=== PATIENT | female | born 1965 | race Caucasian/White ===

== ENCOUNTER 2018-06-17 21:46 | Emergency (ER) | payer MEDICARE, MEDICAID ==
[~2018-06-17] VITALS: Ht 165.1 cm; Wt 63.5 kg
[~2018-06-17 21:46] MED LIST: AMIT100T2 PO; ASCO500T11 PO; Acetaminophen PO; BISA-51 PO; GABA-339 PO; IBUP800T24 PO; INSLANTI SC; LEVO500T21 PO; LIS10T PO; LORA-654 PO; LOVA40TA72 PO; SERT-274 PO; TIZA4TAB9 PO
[2018-06-17 23:23] LABS: Basophils # (auto) 0 uL; Basophils % (auto) 0.5 % (0.0-2.0); Eosinophils # (auto) 0.1 uL; Eosinophils % (auto) 1.2 % (0.0-7.0); Hematocrit 34.2 % (36.0-46.0); Hemoglobin 11.5 g/dL (12.2-16.2); Lymphocytes # (auto) 0.5 uL; Lymphocytes % (auto) 7.1 % (10.0-50.0); Mean Corpuscular Hemoglobin 29.8 pg (28.0-32.0); Mean Corpuscular Hgb Conc. 33.5 g/dL (32.0-36.0); Mean Corpuscular Volume 88.9 fL (80.0-100.0); Monocytes # (auto) 0.7 uL; Neutrophils # (auto) 5.9 uL; Neutrophils % (auto) 81.2 % (37.0-80.0); Nucleated Red Blood Cells % 0.1 %; Platelet Count (auto) 122 10^3/uL (140-450); Red Blood Cells 3.85 10^6/uL (4.0-5.20); Red Cell Distribution Width 14.1 % (11.8-14.3); White Blood Cell 7.3 10^3/uL (4.4-10.8)
[2018-06-17 23:35] LABS: Urine Bacteria MANY /hpf (None Seen); Urine Blood 2+ /uL (Negative); Urine Mucus FEW (None Seen); Urine Specific Gravity 1.008 (1.001-1.035); Urine WBC 283 /hpf (0 - 5); Urine WBC Clumps PRESENT /hpf (None Seen)
[2018-06-17 23:42] LABS: Alcohol, Urine < 3.0 mg/dL (0-5); Amphetamine Screen, Urine NEGATIVE (NEGATIVE); Barbiturate Scree,Urine NEGATIVE (NEGATIVE); Benzodiazephine Screen, Urine NEGATIVE (NEGATIVE); Cannabinoid Screen, Urine POSITIVE (NEGATIVE); Cocaine Screen, Urine NEGATIVE (NEGATIVE); Opiate Scree,Urine NEGATIVE (NEGATIVE); Phencyclidine Screen, Urine NEGATIVE (NEGATIVE)
[2018-06-17 23:42] LABS: Albumin 2.7 g/dL (3.4-5.0); Anion Gap 12 (5-15); BUN/Creatinine Ratio 17.5; Blood Alcohol < 3.0 mg/dL (0-5); Blood Urea Nitrogen 14 mg/dL (7-18); Calcium 8.6 mg/dL (8.5-10.1); Carbon Dioxide 21 mmol/L (21-32); Chloride 101 mmol/L (98-107); GFR African American 97 mL/min; GFR Non-African American 80 mL/min; Glucose 338 mg/dL (74-106); Potassium 3.9 mmol/L (3.5-5.1); Sodium 134 mmol/L (136-145)
[2018-06-17 23:45] LABS: Alanine Aminotransferase 31 U/L (13-56); Alkaline Phosphatase 108 U/L (45-117); Aspartate Aminotransferase 23 U/L (15-37); Bilirubin, Total 0.5 mg/dL (0.2-1.0); Total Protein 6.3 g/dL (6.4-8.2)
[2018-06-18] MEDS ORDERED: SODIUM CHLORIDE 0.9% 1,000 ML IV ONE (01:30)
[2018-06-18 02:49] VITALS: BP 132/84
== END 2018-06-18 02:50 | disposition home or self-care (01) ==
LOC: EDBD 21:46 → ER 21:48
DX: R50.9 Fever, unspecified (principal); R30.0 Dysuria; F41.9 Anxiety disorder, unspecified; E11.9 Type 2 diabetes mellitus without complications; E78.5 Hyperlipidemia, unspecified; F17.200 Nicotine dependence, unspecified, uncomplicated; Z88.6 Allergy status to analgesic agent; Z90.710 Acquired absence of both cervix and uterus; Z79.899 Other long term (current) drug therapy
CPT/HCPCS: 36415; 80053; 80307; 80320; 81001; 85025; 87040